=== PATIENT | male | born 1995 | race Caucasian/White ===

== ENCOUNTER 2020-05-31 21:33 | Emergency (ER) | payer OTHER ==
[~2020-05-31] VITALS: Ht 190.5 cm; Wt 81.8 kg
[2020-05-31 21:47] VITALS: Ht 190.5 cm; Wt 81.8 kg
[2020-05-31 22:07] LABS: BASOPHILS 1.8 % (0-2); EOSINOPHILS 4.1 % (0-7); HEMATOCRIT 42.8 % (42.0-54.0); HEMOGLOBIN 14.8 g/dL (13.5-17.5); IMMATURE GRANULOCYTES 0.2 % (0-5); LYMPHOCYTE ABS# 1.56 10x3/uL (1.32-3.57); LYMPHOCYTES 30.5 % (15-50); MCH 31.2 pg (26.0-34.0); MCHC 34.6 g/dL (31.0-37.0); MCV 90.3 fL (80.0-100.0); MEAN PLATELET VOLUME 10.9 fL (7.4-10.4); MONOCYTES 9.2 % (2-11); NEUTROPHIL ABS# 2.77 10x3/uL (1.78-5.38); NEUTROPHILS 54.2 % (40-80); PLATELET COUNT 153 10x3/uL (130-400); RBC 4.74 10x6/uL (4.20-6.10); RDW 12.5 % (11.5-14.5); WBC 5.1 10x3/uL (4.8-10.8)
[2020-05-31 22:19] LABS: CALC OSMOLALITY 277 mosm/kg (275-300); CALCIUM 8.9 mg/dL (8.5-10.1); CHLORIDE - SERUM 106 mmol/L (98-107); GLUCOSE 101 mg/dL (74-106); POTASSIUM - SERUM 3.3 mmol/L (3.5-5.1); SODIUM 139 mmol/L (136-145); UREA NITROGEN 12 mg/dL (7-18); eGFR NON AFRICAN AMERICAN > 90 mL/min (90-120)
[2020-05-31] MEDS ORDERED: KEPPRA500 MG PO (22:43)
[2020-05-31 22:45] LABS: ALBUMIN 4.3 g/dL (3.4-5.0); ALKALINE PHOSPHATASE 52 U/L (30-120); ALT (SGPT) 23 U/L (10-68); CREATINE KINASE 359 UL (21-232); PROTEIN - SERUM 7.1 g/dL (6.4-8.2); THYROID STIMULATING HORMONE 0.87 uIU/mL (0.36-3.74)
[2020-05-31 22:49] LABS: CKMB 2.3 U/L (0.0-3.6)
[2020-05-31 23:14] VITALS: BP 126/88
== END 2020-05-31 23:48 | disposition home or self-care (01) ==
LOC: D.ER 21:33
PROVIDERS: Family Medicine
DX: R56.9 Unspecified convulsions (principal)

== ENCOUNTER 2020-06-08 05:48 | Emergency (ER) | payer SELFPAY ==
[~2020-06-08] VITALS: Ht 190.5 cm; Wt 86.4 kg
[~2020-06-08 05:48] MED LIST: KEPPRA500 MG PO
[2020-06-08 05:49] VITALS: Ht 190.5 cm; Wt 86.4 kg
[2020-06-08 06:19] LABS: BASOPHILS 1.3 % (0-2); EOSINOPHILS 2.7 % (0-7); HEMATOCRIT 46.1 % (42.0-54.0); HEMOGLOBIN 15.8 g/dL (13.5-17.5); IMMATURE GRANULOCYTES 0.3 % (0-5); LYMPHOCYTE ABS# 2.43 10x3/uL (1.32-3.57); LYMPHOCYTES 35.1 % (15-50); MCHC 34.3 g/dL (31.0-37.0); MCV 90.6 fL (80.0-100.0); MEAN PLATELET VOLUME 11.4 fL (7.4-10.4); MONOCYTES 6.3 % (2-11); NEUTROPHIL ABS# 3.76 10x3/uL (1.78-5.38); NEUTROPHILS 54.3 % (40-80); PLATELET COUNT 160 10x3/uL (130-400); RBC 5.09 10x6/uL (4.20-6.10); RDW 12.6 % (11.5-14.5); WBC 6.9 10x3/uL (4.8-10.8)
[2020-06-08 06:20] LABS: CALC OSMOLALITY 283 mosm/kg (275-300); CALCIUM 9.4 mg/dL (8.5-10.1); CARBON DIOXIDE 23.7 mmol/L (21.0-32.0); CHLORIDE - SERUM 108 mmol/L (98-107); CREATININE - SERUM 0.9 mg/dL (0.6-1.3); GLUCOSE 90 mg/dL (74-106); POTASSIUM - SERUM 3.3 mmol/L (3.5-5.1); SODIUM 143 mmol/L (136-145); UREA NITROGEN 10 mg/dL (7-18); eGFR NON AFRICAN AMERICAN > 90 mL/min (90-120)
[2020-06-08 06:45] LABS: ALBUMIN 4.5 g/dL (3.4-5.0); ALKALINE PHOSPHATASE 53 U/L (30-120); ALT (SGPT) 28 U/L (10-68); BILIRUBIN - TOTAL 0.27 mg/dL (0.2-1.3); CREATINE KINASE 395 UL (21-232); MAGNESIUM - SERUM 2.3 mg/dL (1.8-2.4); PROTEIN - SERUM 7.6 g/dL (6.4-8.2); TROPONIN-I < 0.017 ng/mL (0.000-0.060)
[2020-06-08 06:46] LABS: CKMB 2.3 U/L (0.0-3.6)
[2020-06-08 08:15] LABS: UDS - AMPHET NEGATIVE QUAL (NEGATIVE); UDS - BARB NEGATIVE QUAL (NEGATIVE); UDS - BENZO NEGATIVE QUAL (NEGATIVE); UDS - COCAINE NEGATIVE QUAL (NEGATIVE); UDS - OPIATE NEGATIVE QUAL (NEGATIVE); UDS - PCP NEGATIVE QUAL (NEGATIVE); UDS - THC POSITIVE QUAL (NEGATIVE)
[2020-06-08 08:34] LABS: BILIRUBIN NEGATIVE (NEGATIVE); KETONE NEGATIVE (NEGATIVE); NITRITE NEGATIVE (NEGATIVE)
[2020-06-08] MEDS ORDERED: DILANTIN100 MG PO (08:57)
[2020-06-08 09:03] VITALS: BP 122/59
== END 2020-06-08 09:03 | disposition home or self-care (01) ==
LOC: D.ER 05:48
PROVIDERS: Family Medicine
DX: G40.909 Epilepsy, unspecified, not intractable, without status epilepticus (principal); M62.82 Rhabdomyolysis